=== PATIENT | female | born 1980 | race Caucasian/White ===

== ENCOUNTER 2022-06-24 04:32 | Day surgery (SDC) | payer OTHER ==
[2022-06-20 13:12] VITALS: BMI 35.4
[2022-06-24] MEDS ORDERED: LIDOCAINE HCL/PF 1% SDV 5ML VIAL ONE (08:00)
[2022-06-24] MEDS ORDERED: DEXAMETHASONE SOD PHOSPHATE 10 MG/1 ML VIAL ONE (08:00)
[2022-06-24] MEDS ORDERED: SODIUM CHLORIDE 0.9% P/F 10 ML VIAL IJ ONE ×2 (09:24→13:37)
[2022-06-24 11:46] VITALS: RESP 18
[2022-06-24] MEDS ORDERED: LIDOCAINE HCL 1% PRESERVATIVE FREE - 30ML VIAL IJ ONE (13:39)
[2022-06-24] MEDS ORDERED: IOHEXOL 180 MG/1 ML ML IJ ONE (13:40)
[2022-06-24] MEDS ORDERED: DEXAMETHASONE SOD PHOSPHATE 10 MG/1 ML VIAL IVPUSH ONE (13:40)
[2022-06-24 14:33] VITALS: BP 121/75; PULSE 74; TEMP 98.7
== END 2022-06-24 14:50 | disposition home or self-care (01) ==
LOC: JASU-SURG 04:32
PROVIDERS: ATTEND Pain Medicine Pain Medicine
PROC: 3E0R33Z Introduction of Anti-inflammatory into Spinal Canal, Percutaneous Approach (ICD-10-PCS; 2022-06-24)
PROC: 3E0R3BZ Introduction of Anesthetic Agent into Spinal Canal, Percutaneous Approach (ICD-10-PCS; principal; 2022-06-24 13:30)
DX: M54.16 Radiculopathy, lumbar region (principal)
CPT/HCPCS: 76000-TC-FY; 81025; J1100

== ENCOUNTER 2022-09-09 04:27 | Day surgery (SDC) | payer OTHER ==
[2022-09-03 15:43] VITALS: BMI 35.4
[2022-09-09] MEDS ORDERED: DEXAMETHASONE SOD PHOSPHATE 4 MG/1 ML VIAL ONE (07:36)
[2022-09-09] MEDS ORDERED: LIDOCAINE HCL/PF 1% SDV 5ML VIAL ONE (07:36)
[2022-09-09] MEDS ORDERED: DEXAMETHASONE SOD PHOSPHATE 10 MG/1 ML VIAL ONE (07:37)
[2022-09-09 13:20] VITALS: RESP 20
[2022-09-09] MEDS ORDERED: SODIUM CHLORIDE 0.9% P/F 10 ML VIAL IJ ONE (13:53)
[2022-09-09] MEDS ORDERED: IOHEXOL 180 MG/1 ML ML IJ ONE (14:11)
[2022-09-09] MEDS ORDERED: LIDOCAINE HCL 1% PRESERVATIVE FREE - 30ML VIAL IJ ONE (14:11)
[2022-09-09] MEDS ORDERED: DEXAMETHASONE SOD PHOSPHATE 10 MG/1 ML VIAL IVPUSH ONE (14:12)
[2022-09-09 14:34] VITALS: TEMP 98
[2022-09-09 15:27] VITALS: BP 120/70; PULSE 80
== END 2022-09-09 14:45 | disposition home or self-care (01) ==
LOC: JASU-SURG 04:27
PROVIDERS: ATTEND Pain Medicine Pain Medicine
PROC: 3E0R3BZ Introduction of Anesthetic Agent into Spinal Canal, Percutaneous Approach (ICD-10-PCS; 2022-09-09)
PROC: 3E0R33Z Introduction of Anti-inflammatory into Spinal Canal, Percutaneous Approach (ICD-10-PCS; principal; 2022-09-09 15:00)
DX: M48.061 Spinal stenosis, lumbar region without neurogenic claudication (principal); M54.16 Radiculopathy, lumbar region
CPT/HCPCS: 76000-TC-FY; 81025; J1100

== ENCOUNTER 2022-11-21 03:47 | Day surgery (SDC) | payer OTHER ==
[2022-11-19 14:55] VITALS: BMI 35.4
[2022-11-21] MEDS ORDERED: TRIAMCINOLONE ACET 40MG/1ML VIAL ONE (07:15)
[2022-11-21] MEDS ORDERED: LIDOCAINE HCL/PF 1% SDV 5ML VIAL ONE (07:15)
[2022-11-21] MEDS ORDERED: BUPIVACAINE HCL/PF 0.5% (5MG/ML) 10 ML VIAL ONE (07:15)
[2022-11-21 08:18] VITALS: TEMP 98.7
[2022-11-21] MEDS ORDERED: ACETAMINOPHEN 500 MG TABLET (FP) PO PRN (08:41)
[2022-11-21] MEDS ORDERED: LIDOCAINE HCL 1% PRESERVATIVE FREE - 30ML VIAL IJ ONE (09:47)
[2022-11-21] MEDS ORDERED: BUPIVACAINE HCL/PF 0.5% (5MG/ML) 10 ML VIAL IJ ONE (09:47)
[2022-11-21] MEDS ORDERED: TRIAMCINOLONE ACET 40MG/1ML VIAL IJ ONE (09:49)
[2022-11-21 10:15] VITALS: BP 129/72; PULSE 72; RESP 20
== END 2022-11-21 10:37 | disposition home or self-care (01) ==
LOC: JASU-SURG 03:47
PROVIDERS: ATTEND Pain Medicine Pain Medicine
PROC: 3E0U3BZ Introduction of Anesthetic Agent into Joints, Percutaneous Approach (ICD-10-PCS; 2022-11-21)
PROC: 3E0U33Z Introduction of Anti-inflammatory into Joints, Percutaneous Approach (ICD-10-PCS; principal; 2022-11-21 09:30)
DX: M53.3 Sacrococcygeal disorders, not elsewhere classified (principal)
CPT/HCPCS: 76000-TC-FY; 81025

== ENCOUNTER 2024-05-13 04:20 | Day surgery (SDC) | payer OTHER ==
[2024-05-11 12:46] VITALS: BMI 32.0
[2024-05-13] MEDS ORDERED: MIDAZOLAM HCL 2 MG/2 ML SINGLE DOSE VIAL ONE (10:31)
[2024-05-13] MEDS ORDERED: PROPOFOL 20 ML ONE (10:31)
[2024-05-13] MEDS ORDERED: ONDANSETRON 4 MG/2 ML VIAL ONE (11:17)
[2024-05-13] MEDS ORDERED: DEXAMETHASONE SOD PHOSPHATE 4 MG/1 ML VIAL ONE (11:17)
[2024-05-13] MEDS ORDERED: KETOROLAC TROMETHAMINE 30 MG/1 ML VIAL ONE (11:19)
[2024-05-13] MEDS ORDERED: oxyCODONE HCL 5 MG TABLET PO PRN (12:24)
[2024-05-13] MEDS ORDERED: ONDANSETRON 4 MG/2 ML VIAL IVPUSH PRN (12:24)
[2024-05-13] MEDS ORDERED: ACETAMINOPHEN INJECTION 100 ML ONE (12:38)
[2024-05-13] MEDS: LACTATED RINGERS SOLUTION 1,000 ML IV SCH (12:45)
[2024-05-13] MEDS: ACETAMINOPHEN 1000 MG/100 ML BAG IVPB ONE (12:46)
[2024-05-13 13:18] VITALS: RESP 16; TEMP 97.1
[2024-05-13 13:59] VITALS: BP 119/75; PULSE 61
== END 2024-05-13 14:11 | disposition home or self-care (01) ==
LOC: JASU-SURG 04:20
PROVIDERS: ATTEND Obstetrics & Gynecology Obstetrics
PROC: 0UDB8ZX Extraction of Endometrium, Via Natural or Artificial Opening Endoscopic, Diagnostic (ICD-10-PCS; principal; 2024-05-13 10:00)
DX: N92.0 Excessive and frequent menstruation with regular cycle (principal)
CPT/HCPCS: 81025; 82962; 88305-TC; 94760; J0131

== ENCOUNTER 2025-01-12 07:07 | Inpatient (IN) | payer OTHER ==
[2025-01-11 13:40] VITALS: BMI 19.9
[2025-01-12] MEDS ORDERED: LACTATED RINGERS SOLUTION 1,000 ML IV SCH (09:30)
[2025-01-12] MEDS ORDERED: ROCURONIUM BROMIDE 50 MG/5 ML SYRINGE ONE ×2 (09:51→10:44)
[2025-01-12] MEDS ORDERED: MIDAZOLAM HCL 2 MG/2 ML SINGLE DOSE VIAL ONE (09:52)
[2025-01-12] MEDS ORDERED: PROPOFOL 20 ML ONE (09:52)
[2025-01-12] MEDS: ceFAZolin SODIUM 1 GM VIAL IVPB ONE (10:05)
[2025-01-12] MEDS ORDERED: ceFAZolin SODIUM 1 GM VIAL ONE (10:09)
[2025-01-12] MEDS ORDERED: ONDANSETRON 4 MG/2 ML VIAL ONE (10:09)
[2025-01-12] MEDS ORDERED: KETOROLAC TROMETHAMINE 30 MG/1 ML VIAL ONE (10:09)
[2025-01-12] MEDS ORDERED: HYDROmorphone HCl 2 MG/ML VIAL ONE (10:10)
[2025-01-12] MEDS ORDERED: SUGAMMADEX SODIUM 200 MG/2 ML VIAL ONE ×2 (11:48→12:01)
[2025-01-12] MEDS: ACETAMINOPHEN 1000 MG/100 ML BAG IVPB PRN (15:16)
[2025-01-12] MEDS: IBUPROFEN 800 MG/8 ML IJ IVPB PRN (16:33)
[2025-01-12] MEDS: ACETAMINOPHEN 1000 MG/100 ML BAG IVPB ONE (17:57)
[2025-01-12] MEDS: ONDANSETRON 4 MG/2 ML VIAL IVPUSH PRN (19:24)
[2025-01-12] MEDS: HYDROmorphone HCL CARPU-JECT 2 MG/1 ML DISP.SYRIN IVPB PRN (20:31)
[2025-01-13] MEDS: LACTATED RINGERS SOLUTION 1,000 ML IV SCH
[2025-01-13] MEDS: metFORMIN HCL 500 MG TABLET (FP) PO SCH (09:56)
[2025-01-13] MEDS ORDERED: LACTATED RINGERS SOLUTION 1000 ML INFUS.BAG IV SCH (10:00)
[2025-01-13] MEDS: oxyCODONE HCL 5 MG TABLET PO PRN (10:15)
[2025-01-13] MEDS ORDERED: oxyCODONE HCL 5 MG TABLET PO PRN ×2 (12:25→20:15)
[2025-01-13] MEDS: HYDROmorphone HCl 2 MG/ML VIAL IVPB PRN (12:58)
[2025-01-13 13:55] LABS: ABSOLUTE IMMATURE GRANULOCYTES 0.08 x10^3/uL (0.0-0.031); BASOPHILS # 0.05 x10^3/uL (0.01-0.08); EOSINOPHIL % 0.8 % (0.7-5.8); EOSINOPHILS # 0.14 x10^3/uL (0.04-0.36); HEMATOCRIT 36.1 % (34.1-44.9); HEMOGLOBIN 11.4 g/dL (11.2-15.7); MCHC 31.6 g/dl (32.2-35.5); MEAN CELL VOLUME 88.7 fl (79.4-94.8); MEAN PLT VOLUME 10.2 fl (9.4-12.3); MONOCYTE # 0.84 x10^3/uL (0.24-0.86); PLATELET COUNT 252 x10^3/uL (182-369)
[2025-01-13] MEDS: IBUPROFEN 600 MG TABLET (FP) PO PRN (20:19)
[2025-01-13] MEDS: SIMETHICONE 80 MG TAB.CHEW (FP) PO PRN (20:20)
[2025-01-13] MEDS: SENNOSIDES/DOCUSATE COMBO (SENNA PLUS) TABLET (UD) PO PRN (20:20)
[2025-01-13] MEDS: BISACODYL 10 MG SUPP.RECT PR PRN (21:32)
[2025-01-13] MEDS: ACETAMINOPHEN 325 MG TABLET (FP) PO PRN (22:07)
[2025-01-14 09:27] VITALS: RESP 16
[2025-01-14 09:29] VITALS: BP 116/77; PULSE 79; TEMP 97.9
== END 2025-01-14 12:30 | disposition home or self-care (01) | DRG 513 ==
LOC: J2C 07:07 → J3W 14:36
PROVIDERS: ADMIT Obstetrics & Gynecology Obstetrics; ATTEND Obstetrics & Gynecology Obstetrics
PROC: 0UT70ZZ Resection of Bilateral Fallopian Tubes, Open Approach (ICD-10-PCS; 2025-01-12)
PROC: 0UT90ZZ Resection of Uterus, Open Approach (ICD-10-PCS; principal; 2025-01-12 09:00)
DX: N92.0 Excessive and frequent menstruation with regular cycle (principal); N94.6 Dysmenorrhea, unspecified
CPT/HCPCS: 36415; 82947; 82962; 85025; 86850; 86900; 86901; 88307-TC; 94760